=== PATIENT | female | born 1980 | race Two or more races ===

== ENCOUNTER → 2024-02-10 | Outpatient (CLI) | payer SELFPAY | END | disposition home or self-care (01) | LOC: PF 14:06 | PROVIDERS: ATTEND Internal Medicine Rheumatology | DX: R06.02 Shortness of breath (principal); R05.9 Cough, unspecified; R06.00 Dyspnea, unspecified; Z20.822 Contact with and (suspected) exposure to COVID-19 | CPT/HCPCS: 87426 ==